=== PATIENT | male | born 1995 | race Two or more races ===

== ENCOUNTER 2023-10-11 12:17 | Inpatient (IN) | payer OTHER ==
[2023-10-11 12:51] VITALS: BMI 46.5
[2023-10-11] MEDS ORDERED: MAG HYDROX/AL HYDROX/SIMETH 30 ML UNIT-DOSE CUP PO PRN (13:35)
[2023-10-11] MEDS ORDERED: LOPERAMIDE HCL 2 MG CAPSULE PO PRN (13:35)
[2023-10-11] MEDS ORDERED: BENZONATATE 200 MG CAPSULE PO PRN (13:35)
[2023-10-11] MEDS ORDERED: guaiFENesin 600 MG TABLET.ER (FP) PO PRN (13:35)
[2023-10-11] MEDS ORDERED: BENZOCAINE/MENTHOL (CHLORASEPTIC ) LOZENGE MM PRN (13:35)
[2023-10-11] MEDS ORDERED: NALOXONE (NYS OPIOID OVERDOSE PROGRAM) 4 MG/0.1 ML SPRAY NS PRN (13:35)
[2023-10-11] MEDS ORDERED: NALOXONE HCL 0.4 MG/ML VIAL IVPUSH PRN (13:35)
[2023-10-11] MEDS ORDERED: IBUPROFEN 400 MG TABLET (FP) PO PRN (13:35)
[2023-10-11] MEDS: PRENATAL VITAMINS W/ FOLIC ACID TABLET (FP) PO SCH (15:45)
[2023-10-11] MEDS: NICOTINE 21 MG/24 HOURS TOPICAL PATCH TD SCH (15:46)
[2023-10-11] MEDS: methaDONE HCL 10 MG TABLET PO SCH (17:33)
[2023-10-11] MEDS: TUBERCULIN PPD 5 TU/0.1ML SYRINGE (IN PATIENT USE ONLY) ID ONE (17:48)
[2023-10-11] MEDS: NICOTINE POLACRILEX 2 MG GUM BUC PRN (18:55)
[2023-10-11] MEDS: METHOCARBAMOL 500 MG TABLET PO PRN (21:49)
[2023-10-11] MEDS: THIAMINE 100 MG TABLET PO SCH (21:49)
[2023-10-11] MEDS: MELATONIN 5 MG TABLETS PO SCH (21:50)
[2023-10-12] MEDS: hydrOXYzine PAMOATE 25 MG CAPSULE (FP) PO PRN (07:45)
[2023-10-12] MEDS: MAGNESIUM HYDROX 2400MG/30ML ORAL SUSPENSION 30 ML CUP PO PRN (07:48)
[2023-10-12] MEDS ORDERED: SERTRALINE HCL 50 MG TABLET (FP) PO SCH (10:00)
[2023-10-12] MEDS: SERTRALINE HCL 50 MG TABLET (FP) PO SCH (10:33)
[2023-10-12] MEDS: ACETAMINOPHEN 325 MG TABLET (FP) PO PRN (10:34)
[2023-10-12] MEDS: DOCUSATE SODIUM 100 MG CAPSULE (FP) PO SCH (11:50)
[2023-10-12] MEDS: METHOCARBAMOL 500 MG TABLET PO SCH (12:18)
[2023-10-12] MEDS: TOPIRAMATE 25 MG TABLET PO SCH (12:18)
[2023-10-12] MEDS: amLODIPine BESYLATE 10 MG TABLET (FP) PO SCH (12:18)
[2023-10-12] MEDS: BACITRACIN 0.9 GM PACKET TP SCH (12:18)
[2023-10-12] MEDS: SENNOSIDES 8.6MG TABLET (FP) PO SCH (12:43)
[2023-10-12] MEDS: cloNIDine HCL 0.1 MG TABLET PO SCH (13:44)
[2023-10-12] MEDS ORDERED: traZODone HCL 50 MG TABLET (FP) PO SCH (22:00)
[2023-10-13] MEDS: NICOTINE POLACRILEX 4 MG LOZENGE BC PRN (10:58)
[2023-10-13] MEDS: NICOTINE POLACRILEX 4 MG GUM BUC PRN (10:58)
[2023-10-13] MEDS: traZODone HCL 50 MG TABLET (FP) PO SCH (21:33)
[2023-10-14 12:30] LABS: HEMATOCRIT 41.7 % (35.4-49); HEMOGLOBIN 14.2 GM/dL (11.7-16.9); MCH 30.7 pg (25.7-33.7); MCHC 33.9 g/dl (32.0-35.9); MEAN CELL VOLUME 90.4 fl (80-96); MEAN PLT VOLUME 8.3 fl (7.5-11.1); PLATELET COUNT 288 10^3/uL (134-434); RBC 4.62 M/mm3 (4.00-5.60); RDW 13.8 % (11.9-15.9); WHITE BLOOD COUNT 7.4 K/mm3 (4.0-10.0)
[2023-10-14 12:37] LABS: POTASSIUM 4.2 mmol/L (3.5-5.1)
[2023-10-14 12:44] LABS: CALCIUM 9.3 mg/dL (8.5-10.1)
[2023-10-14 12:45] LABS: ALBUMIN 3.8 g/dl (3.4-5.0); BLOOD UREA NITROGEN 13.5 mg/dL (7-18)
[2023-10-14 12:48] LABS: CREATININE 1.1 mg/dL (0.55-1.3)
[2023-10-14 12:49] LABS: BILIRUBIN,TOTAL 0.3 mg/dL (0.2-1); TOT PROT 6.9 g/dl (6.4-8.2)
[2023-10-14 12:51] LABS: EPI CELLS 27 /uL (0-25.1); HYALINE CASTS 8 /uL (0-3.1); URINE APPEARANCE CLEAR; URINE BACTERIA 5 /uL (0-1359); URINE BILIRUBIN NEGATIVE (NEGATIVE); URINE COLOR YELLOW; URINE GLUCOSE (UA) NEGATIVE (NEGATIVE); URINE KETONE NEGATIVE (NEGATIVE); URINE LEUK ESTERASE 1+ (NEGATIVE); URINE NITRITE NEGATIVE (NEGATIVE); URINE PROTEIN NEGATIVE (NEGATIVE); URINE RBC 2 /uL (0-23.9); URINE UROBILINOGEN 0.2 mg/dL (0.2-1.0); URINE WBC 82 /uL (0-25.8)
[2023-10-15] MEDS: POLYETHYLENE GLYCOL (HEALTHYLAX) 3350 17 GM PACKET PO PRN (21:50)
[2023-10-16] MEDS: GABAPENTIN 100 MG CAPSULE PO SCH (21:35)
[2023-10-17] MEDS: IBUPROFEN 600 MG TABLET (FP) PO PRN (20:12)
[2023-10-18] MEDS: MINERAL OIL ENEMA 133 ML ENEMA RC ONE (15:51)
[2023-10-19] MEDS: LACTULOSE 20 GM/30 ML UDC (FOR ORAL USE ONLY) PO SCH (14:08)
[2023-10-22] MEDS: SENNOSIDES 8.6MG TABLET (FP) PO PRN (21:42)
[2023-10-23] MEDS: cloNIDine HCL 0.1 MG TABLET PO SCH (21:38)
[2023-10-23] MEDS: GABAPENTIN 300 MG CAPSULE PO SCH (21:38)
[2023-10-25 07:20] VITALS: BP 155/90; PULSE 69; RESP 17; TEMP 97.3
== END 2023-10-25 09:30 | disposition home or self-care (01) | DRG 772 ==
LOC: YASAS 12:17 → Y3NR 14:22 → Y5N 10-12 12:52
PROVIDERS: ADMIT Allergy & Immunology; ATTEND Psychiatry & Neurology Pain Medicine
PROC: HZ42ZZZ Group Counseling for Substance Abuse Treatment, Cognitive-Behavioral (ICD-10-PCS; principal; 2023-10-11)
DX: F10.20 Alcohol dependence, uncomplicated (principal); F11.20 Opioid dependence, uncomplicated; F13.20 Sedative, hypnotic or anxiolytic dependence, uncomplicated; F17.210 Nicotine dependence, cigarettes, uncomplicated; F32.9 Major depressive disorder, single episode, unspecified; F41.9 Anxiety disorder, unspecified; G47.00 Insomnia, unspecified; I10 Essential (primary) hypertension; K59.03 Drug induced constipation; M62.830 Muscle spasm of back; M54.50 Low back pain, unspecified; E66.01 Morbid (severe) obesity due to excess calories; Z68.42 Body mass index [BMI] 45.0-49.9, adult
CPT/HCPCS: 36415; 80053; 80305; 80307; 81003; 82140; 85027; 86780; 86803; 87811; 93005; 93010

== ENCOUNTER 2023-11-17 21:32 | Inpatient (IN) | payer OTHER ==
[2023-11-17 21:58] VITALS: BMI 46.5
[2023-11-17] MEDS ORDERED: BENZONATATE 200 MG CAPSULE PO PRN (22:42)
[2023-11-17] MEDS ORDERED: MAG HYDROX/AL HYDROX/SIMETH 30 ML UNIT-DOSE CUP PO PRN (22:42)
[2023-11-17] MEDS ORDERED: NALOXONE HCL 0.4 MG/ML VIAL IM PRN (22:42)
[2023-11-17] MEDS ORDERED: DICYCLOMINE HCL 10 MG CAPSULE PO PRN (22:42)
[2023-11-17] MEDS ORDERED: BENZOCAINE/MENTHOL (CHLORASEPTIC ) LOZENGE MM PRN (22:42)
[2023-11-17] MEDS ORDERED: POLYETHYLENE GLYCOL (HEALTHYLAX) 3350 17 GM PACKET PO PRN (22:42)
[2023-11-17] MEDS ORDERED: NALOXONE (NARCAN) HCL 4 MG/0.1 ML SPRAY NS PRN (22:42)
[2023-11-17] MEDS ORDERED: LOPERAMIDE HCL 2 MG CAPSULE PO PRN (22:42)
[2023-11-17] MEDS ORDERED: BISMUTH SUBSALICYLATE 524 MG/30 ML PO PRN (22:42)
[2023-11-17] MEDS ORDERED: guaiFENesin 600 MG TABLET.ER (FP) PO PRN (22:42)
[2023-11-18] MEDS: ONDANSETRON *ODT* 4 MG TABLET SL PRN (07:40)
[2023-11-18] MEDS ORDERED: ONDANSETRON *ODT* 4 MG TABLET ONE (07:40)
[2023-11-18] MEDS ORDERED: SENNOSIDES 8.6MG TABLET (FP) PO PRN (09:15)
[2023-11-18] MEDS ORDERED: PRENATAL VITAMINS W/ FOLIC ACID TABLET (FP) PO ONE (10:16)
[2023-11-18] MEDS ORDERED: NICOTINE 21 MG/24 HOURS TOPICAL PATCH ONE (10:16)
[2023-11-18] MEDS ORDERED: BISACODYL 5 MG TABLET.DR (FP) PO PRN (10:23)
[2023-11-18] MEDS: NICOTINE 21 MG/24 HOURS TOPICAL PATCH TD SCH ×2 (10:43)
[2023-11-18] MEDS: PRENATAL VITAMINS W/ FOLIC ACID TABLET (FP) PO SCH (10:44)
[2023-11-18] MEDS: amLODIPine BESYLATE 10 MG TABLET (FP) PO SCH (10:44)
[2023-11-18] MEDS: LORazepam 2 MG TABLET PO SCH (10:44)
[2023-11-18] MEDS: methaDONE 240 MG, methaDONE 30 MG PO SCH (10:45)
[2023-11-18] MEDS: METHOCARBAMOL 500 MG TABLET PO PRN (10:46)
[2023-11-18] MEDS ORDERED: METHOCARBAMOL 500 MG TABLET ONE (11:09)
[2023-11-18] MEDS: methaDONE HCL 40 MG DISPERSABLE TABLET PO SCH (11:17)
[2023-11-18] MEDS: TOPIRAMATE 25 MG TABLET PO SCH (13:19)
[2023-11-18] MEDS: BISACODYL 5 MG TABLET.DR (FP) PO SCH ×2 (13:19→22:34)
[2023-11-18] MEDS: NICOTINE POLACRILEX 4 MG GUM BUC PRN ×2 (13:20→15:19)
[2023-11-18] MEDS: GABAPENTIN 100 MG CAPSULE PO SCH (15:17)
[2023-11-18] MEDS: NICOTINE POLACRILEX 2 MG LOZENGE BC PRN (15:19)
[2023-11-18 15:21] LABS: CHLORIDE 108 mmol/L (98-107); HEMATOCRIT 35.4 % (35.4-49); HEMOGLOBIN 11.8 GM/dL (11.7-16.9); MCH 30.4 pg (25.7-33.7); MCHC 33.4 g/dl (32.0-35.9); MEAN CELL VOLUME 90.9 fl (80-96); MEAN PLT VOLUME 7.6 fl (7.5-11.1); PLATELET COUNT 286 10^3/uL (134-434); RBC 3.89 M/mm3 (4.00-5.60); RDW 13.9 % (11.9-15.9); SODIUM 141 mmol/L (136-145); WHITE BLOOD COUNT 7.7 K/mm3 (4.0-10.0)
[2023-11-18 15:37] LABS: CALCIUM 8.9 mg/dL (8.5-10.1)
[2023-11-18 15:38] LABS: ALBUMIN 3.6 g/dl (3.4-5.0); ANION GAP 3 mmol/L (4-13); BLOOD UREA NITROGEN 23.9 mg/dL (7-18); CO2 30 mmol/L (21-32); GLUCOSE,RANDOM 114 mg/dL (74-106)
[2023-11-18 15:41] LABS: CREATININE 0.9 mg/dL (0.55-1.3); SGOT/AST 13 U/L (15-37); SGPT/ALT 24 U/L (13-61)
[2023-11-18 15:42] LABS: TOT PROT 6.4 g/dl (6.4-8.2)
[2023-11-18 15:43] LABS: BILIRUBIN,TOTAL 0.2 mg/dL (0.2-1)
[2023-11-18 15:44] LABS: ALK PHOS 93 U/L (45-117)
[2023-11-18] MEDS: LORazepam 1 MG TABLET PO PRN (19:28)
[2023-11-18] MEDS: DOCUSATE SODIUM 100 MG CAPSULE (FP) PO SCH (22:33)
[2023-11-18] MEDS: SENNOSIDES 8.6MG TABLET (FP) PO SCH (22:33)
[2023-11-18] MEDS: METHOCARBAMOL 500 MG TABLET PO SCH (22:35)
[2023-11-18] MEDS: IBUPROFEN 400 MG TABLET (FP) PO PRN (22:38)
[2023-11-18] MEDS: MELATONIN 5 MG TABLETS PO SCH (22:39)
[2023-11-18] MEDS: THIAMINE 100 MG TABLET PO SCH (22:39)
[2023-11-19] MEDS: ACETAMINOPHEN 325 MG TABLET (FP) PO PRN (01:37)
[2023-11-19] MEDS: SERTRALINE HCL 50 MG TABLET (FP) PO SCH (12:08)
[2023-11-19] MEDS: BACITRACIN 0.9 GM PACKET TP SCH (12:11)
[2023-11-19] MEDS: cloNIDine HCL 0.1 MG TABLET PO SCH (14:09)
[2023-11-19] MEDS: traZODone HCL 50 MG TABLET (FP) PO SCH (22:03)
[2023-11-20] MEDS: hydrOXYzine PAMOATE 25 MG CAPSULE (FP) PO PRN (02:34)
[2023-11-20] MEDS: IBUPROFEN 600 MG TABLET (FP) PO PRN (02:35)
[2023-11-20] MEDS: LORazepam 1 MG TABLET PO SCH (05:55)
[2023-11-20] MEDS: NICOTINE 21 MG/24 HOURS TOPICAL PATCH TD ONE (07:48)
[2023-11-20] MEDS ORDERED: NICOTINE 21 MG/24 HOURS TOPICAL PATCH TD PRN (11:40)
[2023-11-20] MEDS: NICOTINE POLACRILEX 4 MG GUM BUC PRN (12:22)
[2023-11-20] MEDS: cloNIDine HCL 0.1 MG TABLET PO SCH (14:50)
[2023-11-20] MEDS: NICOTINE POLACRILEX 2 MG LOZENGE BC PRN (15:11)
[2023-11-21] MEDS ORDERED: NICOTINE 21 MG/24 HOURS TOPICAL PATCH TD PRN (00:05)
[2023-11-21] MEDS: LORazepam 0.5 MG TABLET PO SCH (05:15)
[2023-11-21] MEDS: NICOTINE 21 MG/24 HOURS TOPICAL PATCH TD SCH (05:26)
[2023-11-21] MEDS: LORazepam 0.5 MG TABLET PO PRN (14:31)
[2023-11-22] MEDS: LORazepam 0.5 MG TABLET PO ONE ×2 (05:10→13:40)
[2023-11-22] MEDS: MAGNESIUM HYDROX 2400MG/30ML ORAL SUSPENSION 30 ML CUP PO PRN (10:30)
[2023-11-24 06:53] VITALS: RESP 18
[2023-11-24 09:37] VITALS: BP 105/63; PULSE 72; TEMP 98.1
== END 2023-11-24 13:30 | disposition other institution (70) | DRG 773 ==
LOC: YASAS 21:32 → Y6N 11-18 10:15
PROVIDERS: ADMIT Allergy & Immunology; ATTEND Surgery
PROC: HZ2ZZZZ Detoxification Services for Substance Abuse Treatment (ICD-10-PCS; principal; 2023-11-18)
DX: F10.230 Alcohol dependence with withdrawal, uncomplicated (principal); F11.20 Opioid dependence, uncomplicated; F13.20 Sedative, hypnotic or anxiolytic dependence, uncomplicated; F15.20 Other stimulant dependence, uncomplicated; F17.210 Nicotine dependence, cigarettes, uncomplicated; F19.280 Other psychoactive substance dependence with psychoactive substance-induced anxiety disorder; F19.282 Other psychoactive substance dependence with psychoactive substance-induced sleep disorder; F32.A Depression, unspecified; I10 Essential (primary) hypertension; K59.00 Constipation, unspecified; L02.612 Cutaneous abscess of left foot; M54.50 Low back pain, unspecified; G89.29 Other chronic pain; E66.01 Morbid (severe) obesity due to excess calories; Z68.42 Body mass index [BMI] 45.0-49.9, adult; Z62.810 Personal history of physical and sexual abuse in childhood; Z63.8 Other specified problems related to primary support group
CPT/HCPCS: 36415; 80053; 80305; 80307; 85027; 86780; 87811; 93005; 93010; Q0162

== ENCOUNTER 2023-11-24 13:45 | Inpatient (IN) | payer OTHER ==
[2023-11-24] MEDS ORDERED: BENZONATATE 200 MG CAPSULE PO PRN (14:35)
[2023-11-24] MEDS ORDERED: IBUPROFEN 400 MG TABLET (FP) PO PRN (14:35)
[2023-11-24] MEDS ORDERED: ACETAMINOPHEN 325 MG TABLET (FP) PO PRN (14:35)
[2023-11-24] MEDS ORDERED: hydrOXYzine PAMOATE 25 MG CAPSULE (FP) PO PRN (14:35)
[2023-11-24] MEDS ORDERED: LOPERAMIDE HCL 2 MG CAPSULE PO PRN (14:35)
[2023-11-24] MEDS ORDERED: NALOXONE (NARCAN) HCL 4 MG/0.1 ML SPRAY NS PRN (14:35)
[2023-11-24] MEDS ORDERED: NALOXONE HCL 0.4 MG/ML VIAL IVPUSH PRN (14:35)
[2023-11-24] MEDS ORDERED: BENZOCAINE/MENTHOL (CHLORASEPTIC ) LOZENGE MM PRN (14:35)
[2023-11-24] MEDS ORDERED: guaiFENesin 600 MG TABLET.ER (FP) PO PRN (14:35)
[2023-11-24] MEDS: NICOTINE POLACRILEX 4 MG LOZENGE BC PRN (16:21)
[2023-11-24] MEDS: POLYETHYLENE GLYCOL (HEALTHYLAX) 3350 17 GM PACKET PO PRN (16:24)
[2023-11-24] MEDS: NICOTINE POLACRILEX 4 MG GUM BUC PRN (17:42)
[2023-11-24] MEDS: THIAMINE 100 MG TABLET PO SCH (21:27)
[2023-11-24] MEDS: MELATONIN 5 MG TABLETS PO SCH (21:27)
[2023-11-24] MEDS: traZODone HCL 100 MG TABLET (FP) PO SCH (21:28)
[2023-11-24] MEDS: cloNIDine HCL 0.1 MG TABLET PO SCH (21:28)
[2023-11-24] MEDS: SENNOSIDES 8.6MG TABLET (FP) PO SCH (21:28)
[2023-11-24] MEDS: DOCUSATE SODIUM 100 MG CAPSULE (FP) PO SCH (21:29)
[2023-11-24] MEDS: TOPIRAMATE 25 MG TABLET PO SCH (21:29)
[2023-11-24] MEDS: GABAPENTIN 100 MG CAPSULE PO SCH (21:30)
[2023-11-24] MEDS: METHOCARBAMOL 500 MG TABLET PO PRN (21:32)
[2023-11-25] MEDS: amLODIPine BESYLATE 10 MG TABLET (FP) PO SCH (09:48)
[2023-11-25] MEDS: PRENATAL VITAMINS W/ FOLIC ACID TABLET (FP) PO SCH (09:48)
[2023-11-25] MEDS: SERTRALINE HCL 50 MG TABLET (FP) PO SCH (09:48)
[2023-11-25] MEDS: NICOTINE 21 MG/24 HOURS TOPICAL PATCH TD SCH (09:50)
[2023-11-25] MEDS: methaDONE 240 MG, methaDONE 30 MG PO SCH (09:50)
[2023-11-25] MEDS ORDERED: methaDONE HCL 40 MG DISPERSABLE TABLET PO SCH (10:00)
[2023-11-26] MEDS: methaDONE 240 MG, methaDONE 30 MG PO SCH (06:09)
[2023-11-26] MEDS: MAGNESIUM HYDROX 2400MG/30ML ORAL SUSPENSION 30 ML CUP PO PRN (10:19)
[2023-11-27] MEDS: LACTULOSE 20 GM/30 ML UDC (FOR ORAL USE ONLY) PO SCH (06:23)
[2023-11-27] MEDS: NICOTINE 21 MG/24 HOURS TOPICAL PATCH TD ONE (11:38)
[2023-11-27] MEDS: BACITRACIN 0.9 GM PACKET TP SCH (11:39)
[2023-11-27] MEDS: IBUPROFEN 600 MG TABLET (FP) PO PRN (22:03)
[2023-11-28] MEDS: NICOTINE 21 MG/24 HOURS TOPICAL PATCH TD SCH (06:23)
[2023-11-29] MEDS ORDERED: methaDONE HCL 10 MG TABLET PO ONE (09:02)
[2023-11-29] MEDS: methaDONE 240 MG, methaDONE 30 MG PO ONE (09:53)
[2023-11-29] MEDS ORDERED: DOCUSATE SODIUM 100 MG CAPSULE (FP) PO PRN (11:02)
[2023-11-29] MEDS: cloNIDine HCL 0.1 MG TABLET PO SCH (13:51)
[2023-11-30] MEDS ORDERED: methaDONE HCL 40 MG DISPERSABLE TABLET PO SCH (06:00)
[2023-11-30] MEDS: BISACODYL 5 MG TABLET.DR (FP) PO PRN (21:13)
[2023-12-02] MEDS: ONDANSETRON *ODT* 4 MG TABLET SL PRN (07:01)
[2023-12-02] MEDS: methaDONE HCL 10 MG TABLET PO ONE (11:52)
[2023-12-04] MEDS: METHOCARBAMOL 500 MG TABLET PO PRN (13:05)
[2023-12-04] MEDS: GABAPENTIN 100 MG CAPSULE PO SCH (13:05)
[2023-12-05] MEDS: MAG HYDROX/AL HYDROX/SIMETH 30 ML UNIT-DOSE CUP PO PRN (13:11)
[2023-12-06] MEDS ORDERED: NICOTINE 7 MG/24 HOURS TOPICAL PATCH TD SCH (10:00)
[2023-12-06] MEDS ORDERED: GABAPENTIN 100 MG CAPSULE PO SCH (10:00)
[2023-12-06] MEDS: NICOTINE 21 MG/24 HOURS TOPICAL PATCH TD ONE (12:12)
[2023-12-06] MEDS: GABAPENTIN 100 MG CAPSULE PO SCH (14:12)
[2023-12-07] MEDS: NICOTINE 7 MG/24 HOURS TOPICAL PATCH TD SCH (10:03)
[2023-12-07] MEDS: METHOCARBAMOL 500 MG TABLET PO PRN (21:38)
[2023-12-08] MEDS: NICOTINE 7 MG/24 HOURS TOPICAL PATCH TD SCH (06:18)
[2023-12-10] MEDS ORDERED: methaDONE HCL 40 MG DISPERSABLE TABLET PO SCH ×2 (06:00)
[2023-12-10] MEDS: METHADONE PO SCH (06:08)
[2023-12-17] MEDS ORDERED: methaDONE HCL 10 MG TABLET PO SCH (06:00)
[2023-12-19] MEDS: traZODone HCL 50 MG TABLET (FP) PO SCH (21:16)
[2023-12-19] MEDS: MELATONIN 5 MG TABLETS PO SCH (21:17)
[2023-12-21 06:44] VITALS: RESP 18; TEMP 97.4
[2023-12-21 11:14] VITALS: BP 133/74; PULSE 71
== END 2023-12-21 09:55 | disposition home or self-care (01) | DRG 772 ==
LOC: YASAS 13:45 → Y3W 13:47 → Y5N 11-27 15:12
PROVIDERS: ADMIT Allergy & Immunology; ATTEND Psychiatry & Neurology Pain Medicine
PROC: HZ42ZZZ Group Counseling for Substance Abuse Treatment, Cognitive-Behavioral (ICD-10-PCS; principal; 2023-11-24)
DX: F11.20 Opioid dependence, uncomplicated (principal); F14.20 Cocaine dependence, uncomplicated; F13.20 Sedative, hypnotic or anxiolytic dependence, uncomplicated; F15.20 Other stimulant dependence, uncomplicated; F10.20 Alcohol dependence, uncomplicated; F17.210 Nicotine dependence, cigarettes, uncomplicated; F19.280 Other psychoactive substance dependence with psychoactive substance-induced anxiety disorder; F41.9 Anxiety disorder, unspecified; F32.A Depression, unspecified; F43.10 Post-traumatic stress disorder, unspecified; E72.20 Disorder of urea cycle metabolism, unspecified; I10 Essential (primary) hypertension; K59.00 Constipation, unspecified; M25.572 Pain in left ankle and joints of left foot; M54.50 Low back pain, unspecified; G89.29 Other chronic pain
CPT/HCPCS: 36415; 73610-TC-LT-FY; 82140; 86803; Q0162

== ENCOUNTER 2024-09-05 16:30 | Inpatient (IN) | payer OTHER ==
[2024-09-05 17:33] VITALS: BMI 44.6
[2024-09-05] MEDS ORDERED: MAGNESIUM HYDROX 2400MG/30ML ORAL SUSPENSION 30 ML CUP PO PRN (17:52)
[2024-09-05] MEDS ORDERED: ACETAMINOPHEN 325 MG TABLET (FP) PO PRN (17:52)
[2024-09-05] MEDS ORDERED: BENZOCAINE/MENTHOL (CHLORASEPTIC ) LOZENGE MM PRN (17:52)
[2024-09-05] MEDS ORDERED: LOPERAMIDE HCL 2 MG CAPSULE PO PRN (17:52)
[2024-09-05] MEDS ORDERED: BISMUTH SUBSALICYLATE 524 MG/30 ML PO PRN (17:52)
[2024-09-05] MEDS ORDERED: NALOXONE (NARCAN) HCL 4 MG/0.1 ML SPRAY NS PRN (17:52)
[2024-09-05] MEDS ORDERED: MAG HYDROX/AL HYDROX/SIMETH 30 ML UNIT-DOSE CUP PO PRN (17:52)
[2024-09-05] MEDS ORDERED: ONDANSETRON *ODT* 4 MG TABLET SL PRN (17:52)
[2024-09-05] MEDS ORDERED: IBUPROFEN 400 MG TABLET (FP) PO PRN (17:52)
[2024-09-05] MEDS ORDERED: DICYCLOMINE HCL 10 MG CAPSULE PO PRN (17:52)
[2024-09-05] MEDS ORDERED: BENZONATATE 200 MG CAPSULE PO PRN (17:52)
[2024-09-05] MEDS ORDERED: guaiFENesin 600 MG TABLET.ER (FP) PO PRN (17:52)
[2024-09-05] MEDS: MELATONIN 5 MG TABLETS PO SCH (21:45)
[2024-09-05] MEDS: hydrOXYzine PAMOATE 25 MG CAPSULE (FP) PO PRN (21:45)
[2024-09-05] MEDS: METHOCARBAMOL 500 MG TABLET PO PRN (21:45)
[2024-09-05] MEDS: THIAMINE 100 MG TABLET PO SCH (21:45)
[2024-09-06] MEDS: IBUPROFEN 600 MG TABLET (FP) PO PRN (01:23)
[2024-09-06] MEDS ORDERED: LORazepam 1 MG TABLET PO PRN (07:28)
[2024-09-06] MEDS ORDERED: methaDONE HCL 10 MG TABLET PO SCH (07:30)
[2024-09-06] MEDS: METHADONE PO SCH (07:39)
[2024-09-06] MEDS: LORazepam 2 MG TABLET PO ONE (08:26)
[2024-09-06] MEDS: PRENATAL VITAMINS W/ FOLIC ACID TABLET (FP) PO SCH (10:04)
[2024-09-06] MEDS: LORazepam 2 MG TABLET PO SCH (10:04)
[2024-09-06] MEDS: TOPIRAMATE 25 MG TABLET PO SCH (10:04)
[2024-09-06] MEDS: amLODIPine BESYLATE 10 MG TABLET (FP) PO SCH (10:04)
[2024-09-06] MEDS: NICOTINE 14 MG/24 HOURS TOPICAL PATCH TD SCH (10:21)
[2024-09-06] MEDS: NICOTINE POLACRILEX 2 MG GUM BUC PRN (10:22)
[2024-09-06 11:48] LABS: HEMATOCRIT 44.2 % (40.1-51.0); HEMOGLOBIN 14.1 g/dL (13.7-17.5); MCHC 31.9 g/dl (32.3-36.5); MEAN CELL VOLUME 92.7 fl (79.0-92.2); MEAN PLT VOLUME 9.8 fl (9.4-12.4); PLATELET COUNT 304 x10^3/uL (163-337); RDW 13.4 % (12.0-15.6)
[2024-09-06 11:56] LABS: CHLORIDE 104 mmol/L (98-107); POTASSIUM 4.1 mmol/L (3.5-5.1); SODIUM 138 mmol/L (136-145)
[2024-09-06 12:03] LABS: ALBUMIN 3.6 g/dl (3.4-5.0); ANION GAP 7 mmol/L (4-13); BLOOD UREA NITROGEN 20.8 mg/dL (7-18); CO2 27 mmol/L (21-32); GLUCOSE,RANDOM 90 mg/dL (74-106)
[2024-09-06 12:04] LABS: SGOT/AST 16 U/L (15-37); SGPT/ALT 19 U/L (13-61)
[2024-09-06 12:05] LABS: BILIRUBIN,TOTAL 0.4 mg/dL (0.2-1)
[2024-09-06 12:06] LABS: TOT PROT 6.7 g/dl (6.4-8.2)
[2024-09-06 12:07] LABS: ALK PHOS 115 U/L (45-117)
[2024-09-06] MEDS: GABAPENTIN 300 MG CAPSULE PO SCH (13:06)
[2024-09-06] MEDS: cloNIDine HCL 0.1 MG TABLET PO SCH (13:06)
[2024-09-06] MEDS: SENNOSIDES 8.6MG TABLET (FP) PO SCH (22:30)
[2024-09-06] MEDS: DOCUSATE SODIUM 100 MG CAPSULE (FP) PO SCH (22:30)
[2024-09-07] MEDS: POLYETHYLENE GLYCOL (HEALTHYLAX) 3350 17 GM PACKET PO PRN (17:10)
[2024-09-07] MEDS: BISACODYL 5 MG TABLET.DR (FP) PO PRN (22:18)
[2024-09-08] MEDS: LORazepam 1 MG TABLET PO SCH (05:50)
[2024-09-08 10:42] VITALS: BP 146/68; PULSE 85; RESP 20; TEMP 98.3
[2024-09-09] MEDS ORDERED: LORazepam 0.5 MG TABLET PO PRN
[2024-09-09] MEDS ORDERED: LORazepam 0.5 MG TABLET PO SCH (05:00)
[2024-09-10] MEDS ORDERED: LORazepam 0.5 MG TABLET PO ONE (05:00)
== END 2024-09-08 12:34 | disposition home or self-care (01) | DRG 773 ==
LOC: YASAS 16:30 → Y3N 18:52
PROVIDERS: ADMIT Allergy & Immunology; ATTEND Allergy & Immunology
PROC: HZ2ZZZZ Detoxification Services for Substance Abuse Treatment (ICD-10-PCS; principal; 2024-09-05)
DX: F10.230 Alcohol dependence with withdrawal, uncomplicated (principal); F11.20 Opioid dependence, uncomplicated; F14.20 Cocaine dependence, uncomplicated; F13.20 Sedative, hypnotic or anxiolytic dependence, uncomplicated; F12.20 Cannabis dependence, uncomplicated; F17.210 Nicotine dependence, cigarettes, uncomplicated; F31.9 Bipolar disorder, unspecified; F41.9 Anxiety disorder, unspecified; F43.10 Post-traumatic stress disorder, unspecified; M54.50 Low back pain, unspecified; G89.29 Other chronic pain; Z62.810 Personal history of physical and sexual abuse in childhood
CPT/HCPCS: 36415; 80053; 80305; 80307; 85027; 86780; 93005; 93010